=== PATIENT | female | born 1990 | race Caucasian/White ===

== ENCOUNTER 2024-07-01 19:01 | Emergency (ER) | payer OTHER ==
[2024-07-01 19:14] VITALS: RESP 18
[2024-07-01] MEDS: HYDROmorphone 1 MG/ML 1 ML SYRINGE IVP STA (19:53)
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
[2024-07-01] MEDS: HYDROmorphone 0.5 MG/0.5 ML SYRINGE IVP STA (22:23)
[2024-07-01] MEDS: KETOROLAC 15 MG/ML 1 ML VIAL IVP STA (22:24)
[2024-07-01] MEDS: SODIUM CHLORIDE 0.9% 1,000 ML IV ONE (22:25)
[2024-07-01] MEDS: LIDOCAINE 1% INJ 10MG/ML (20 ML MDV) SQ ONE (23:36)
[2024-07-02] MEDS: LORazepam 2 MG/ML INJ IV STA (00:28)
[2024-07-02] MEDS: DIPH,PERTUS(ACELL)TETVAC-LF 0.5 ML VIAL IM ONE (02:26)
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
[2024-07-02 02:41] VITALS: BP 107/82; PULSE 77; TEMP 98.6
== END 2024-07-02 02:49 | disposition home or self-care (01) ==
LOC: EC 19:01
DX: S81.011A Laceration without foreign body, right knee, initial encounter (principal); S81.811A Laceration without foreign body, right lower leg, initial encounter; F17.290 Nicotine dependence, other tobacco product, uncomplicated; Z23 Encounter for immunization; V86.69XA Passenger of other special all-terrain or other off-road motor vehicle injured in nontraffic accident, initial encounter
CPT/HCPCS: 73090; 73562; 73630; 90715; 12006; 96374; 96375 ×2; 96376; 96361; 90471; 99284; J2060; J2001; J1170 ×2; J1885